=== PATIENT | male | born 1990 | race Caucasian/White ===

== ENCOUNTER 2021-07-04 12:40 | Emergency (ER) | payer SELFPAY | END 2021-07-04 14:01 | disposition home or self-care (01) | LOC: MW.ED 12:40 | DX: Z13.9 Encounter for screening, unspecified (principal) | CPT/HCPCS: 99283 ==

== ENCOUNTER 2021-10-20 18:34 | Emergency (ER) | payer BC ==
[2021-10-20] MEDS ORDERED: Ketorolac 30 MG/ML SDV IM STA (23:24)
[2021-10-20] MEDS ORDERED: Acetaminophen/HYDROcodone 325-5 MG Tab PO ONE (23:24)
== END 2021-10-20 23:56 | disposition home or self-care (01) ==
LOC: MW.ED 18:34
DX: S92.511A Displaced fracture of proximal phalanx of right lesser toe(s), initial encounter for closed fracture (principal); W20.8XXA Other cause of strike by thrown, projected or falling object, initial encounter
CPT/HCPCS: 29515; 73630-26-RT; 73630-RT; 96372; 99283; J1885